=== PATIENT | male | born 1955 | race Two or more races ===

== ENCOUNTER 2024-06-10 11:11 | Inpatient (IN) | payer MEDICARE, MEDICAID ==
[2024-06-06 08:53] LABS: APTT 24 SECONDS (22-32); PROTHROMBIN TIME 10.3 SECONDS (9.0-12.0)
[2024-06-06 08:56] LABS: BASOPHILS % (AUTO) 0.7 % (0-1); EOSINOPHILS # (AUTO) 0.1 X10'3 (0-0.9); EOSINOPHILS % (AUTO) 1.8 % (0-6); HEMATOCRIT 43.9 % (42.0-52.0); HEMOGLOBIN 14.7 g/dl (14.0-17.9); LYMPHOCYTES # (AUTO) 1.3 X10'3 (1.1-4.8); LYMPHOCYTES % (AUTO) 18.5 % (21-51); MEAN CORPUSCULAR HEMOGLOBIN 29.7 PG (27.0-31.0); MEAN CORPUSCULAR HGB CONC 33.6 g/dL (33.0-36.5); MEAN CORPUSCULAR VOLUME 88.4 FL (78-98); MEAN PLATELET VOLUME 7.7 FL (7.4-10.4); MONOCYTES # (AUTO) 0.6 X10'3 (0-0.9); MONOCYTES % (AUTO) 8.5 % (2-12); NEUTROPHILS # (AUTO) 4.8 X10'3 (1.8-7.7); NEUTROPHILS % (AUTO) 70.5 % (42-75); PLATELET COUNT 241 X10'3 (140-440); RED BLOOD COUNT 4.96 X10'6 (4.70-6.10); RED CELL DISTRIBUTION WIDTH 13.5 % (11.5-14.5); WHITE BLOOD COUNT 6.8 X10'3 (4.5-11.0)
[2024-06-06 09:05] LABS: ALBUMIN 3.6 G/DL (3.4-5.0); ANION GAP 8 (8-16); BLOOD UREA NITROGEN 22 MG/DL (7-18); BUN/CREATININE RATIO 21.2 (10.0-20.0); CALCIUM 8.6 MG/DL (8.5-10.1); CHLORIDE 103 MMOL/L (99-107); CHOL/HDL RATIO 3.8 (0.00-4.99); CHOLESTEROL 196 MG/DL (0-200); CREATININE 1.04 MG/DL (0.60-1.10); GLUCOSE 118 MG/DL (70-104); HDL CHOLESTEROL 51 MG/DL (35-60); LDL CHOLESTEROL 112 MG/DL (50-100); POTASSIUM 4.2 MMOL/L (3.5-5.1); SODIUM 140 MMOL/L (135-145); TOTAL CARBON DIOXIDE 28.8 MMOL/L (24-32); TRIGLYCERIDES 148 MG/DL (20-135); eGFR 71 ML/MIN
[~2024-06-10] VITALS: Ht 162.6 cm; Wt 65.2 kg
[2024-06-10] VITALS (20 sets, daily range): BP systolic 128–161; BP diastolic 54–86; PULSE 66–81; RESP 16–23; TEMP 97.7; O2SAT 96–98
[2024-06-10] MEDS ORDERED: CANA300T PO (13:04)
[2024-06-10] MEDS ORDERED: METF-438 PO (13:04)
[2024-06-10] MEDS ORDERED: GLIM1TAB57 PO ×2 (13:04→13:20)
[2024-06-10] MEDS ORDERED: ASPI-1265 PO (13:20)
[2024-06-10] MEDS ORDERED: LISI20TA28 PO (13:20)
[2024-06-10] MEDS ORDERED: ATOR20TA PO (13:20)
[2024-06-10] MEDS: diphenhydrAMINE 25mg capsule PO PRN (13:51)
[2024-06-10] MEDS: LORazepam 0.5 MG tablet PO PRN (13:51)
[2024-06-10] MEDS: normal saline 1,000 ML IV SCH (13:53)
[2024-06-10] MEDS ORDERED: LIDOcaine 1% (10mg/ml) 2ml vial ONE (14:21)
[2024-06-10] MEDS ORDERED: verapamil 2.5 mg/ml inj IV ONE (14:21)
[2024-06-10] MEDS ORDERED: iohexol 350MG/ML 100ml bottle IV ONE (14:22)
[2024-06-10] MEDS ORDERED: midazolam 1 mg/ML 2ml injection ONE (14:22)
[2024-06-10] MEDS ORDERED: fentaNYL/PF 50MCG/1 ML 2ML syringe ONE (14:22)
[2024-06-10] MEDS ORDERED: heparin 1,000unit/ml 10ml vial 10 ML ONE (14:22)
[2024-06-10] MEDS ORDERED: nitroGLYCERIN 500mcg/5mL D5W 5 ML IV ONE (14:24)
[2024-06-10] MEDS ORDERED: HYDROcodone/acetaminophen 5mg/325mg tablet PO PRN (16:20)
[2024-06-10] MEDS ORDERED: HYDROcodone/acetaminophen 10/325mg tab PO PRN (16:20)
[2024-06-10] MEDS ORDERED: magnesium sulf-water 2g/50mL 50 ML IV PRN (17:10)
[2024-06-10] MEDS ORDERED: magnesium sulf-water 4G/100mL 100 ML IV PRN (17:10)
[2024-06-10] MEDS ORDERED: potassium Cl 40MEQ/1/2NS 520ml 520 ML IV PRN (17:10)
[2024-06-10] MEDS ORDERED: potassium Cl 20 mEq SR tablet PO PRN (17:10)
[2024-06-10] MEDS ORDERED: potassium Cl 40MEQ/270ML bag 250 ML IV PRN (17:10)
[2024-06-10] MEDS ORDERED: potassium Cl 20mEq/100mL bag 100 ML IV PRN (17:10)
[2024-06-10] MEDS ORDERED: potassium CL 10mEq/100ml bag 100 ML IV PRN (17:10)
[2024-06-10] MEDS ORDERED: dextrose 50%-water 50ml dispensing syringe IV PRN ×2 (17:15)
[2024-06-10] MEDS ORDERED: DEXTROSE 15 GM of carb/4 tabs (each vial/BOTTLE has 4 tablets) PO PRN ×2 (17:15)
[2024-06-10] MEDS ORDERED: glucagon, human recombinant 1mg kit SUBCUT PRN (17:15)
[2024-06-10] MEDS ORDERED: ringers solution, lacted 1,000 ML IV ONE (18:25)
[2024-06-10 19:06] LABS: ABG BASE EXCESS -0.1 mmol/L (-2.0-3.0); ABG HCO3 23.8 mmol/L (21.0-28.0); ABG OXYGEN SATURATION 95.2 % (94.0-98.0); ABG PCO2 (T) 35.6 mmHg (35.0-48.0); ABG PO2 (T) 74.3 mmHg (83.0-108.0); ALLEN'S TEST POSITIVE; FCOHb 0.3 % (0.5-1.5); FHHb 4.8 % (0.0-5.0); FMetHb 0.3 % (0.0-1.5); FO2Hb 94.6 % (94.0-98.0); MODE ROOM AIR; PATIENT TEMPERATURE 36.5; TOTAL HEMOGLOBIN 14.2 G/dl (13.5-17.5)
[2024-06-10] MEDS: glimepiride 1 MG tablet PO SCH (20:00)
[2024-06-10] MEDS ORDERED: metFORMIN 500mg tablet PO SCH (20:00)
[2024-06-10] MEDS: albuterol 2.5 MG/3 ML nebule NEB ONE (20:39)
[2024-06-10] MEDS: INSULIN LISPRO 100 UNIT/ML INSULN.PEN MULTI-DOSE SQ SCH (21:31)
[2024-06-11] VITALS (9 sets, daily range): BP systolic 125–158; BP diastolic 68–83; PULSE 64–86; RESP 13–22; TEMP 97.1–97.5; O2SAT 95–98
[2024-06-11] MEDS: metoprolol tartrate 12.5mg (1/2 tablet) PO SCH (01:01)
[2024-06-11] MEDS: mupirocin 2% nasal ointment 1gm UD NS SCH (01:02)
[2024-06-11 02:56] LABS: BASOPHILS % (AUTO) 0.6 % (0-1); EOSINOPHILS # (AUTO) 0.1 X10'3 (0-0.9); EOSINOPHILS % (AUTO) 1.7 % (0-6); HEMATOCRIT 40.5 % (42.0-52.0); HEMOGLOBIN 13.7 g/dl (14.0-17.9); LYMPHOCYTES % (AUTO) 13.5 % (21-51); MEAN CORPUSCULAR HEMOGLOBIN 29.6 PG (27.0-31.0); MEAN CORPUSCULAR HGB CONC 33.9 g/dL (33.0-36.5); MEAN CORPUSCULAR VOLUME 87.4 FL (78-98); MEAN PLATELET VOLUME 7.7 FL (7.4-10.4); MONOCYTES # (AUTO) 0.6 X10'3 (0-0.9); MONOCYTES % (AUTO) 8.5 % (2-12); NEUTROPHILS # (AUTO) 5.5 X10'3 (1.8-7.7); NEUTROPHILS % (AUTO) 75.7 % (42-75); PLATELET COUNT 202 X10'3 (140-440); RED BLOOD COUNT 4.63 X10'6 (4.70-6.10); RED CELL DISTRIBUTION WIDTH 13.5 % (11.5-14.5); WHITE BLOOD COUNT 7.2 X10'3 (4.5-11.0)
[2024-06-11 03:12] LABS: ALANINE AMINOTRANSFERASE 28 U/L (12-78); ALBUMIN 3.1 G/DL (3.4-5.0); ALBUMIN/GLOBULIN RATIO 0.9 (1.1-1.5); ALKALINE PHOSPHATASE 80 IU/L (46-116); ANION GAP 8 (8-16); ASPARTATE AMINO TRANSFERASE 26 U/L (10-37); BILIRUBIN,TOTAL 0.5 MG/DL (0.1-1.0); BLOOD UREA NITROGEN 18 MG/DL (7-18); BUN/CREATININE RATIO 21.7 (10.0-20.0); CALCIUM 8.4 MG/DL (8.5-10.1); CHLORIDE 105 MMOL/L (99-107); CREATININE 0.83 MG/DL (0.60-1.10); GLUCOSE 89 MG/DL (70-104); POTASSIUM 3.5 MMOL/L (3.5-5.1); SODIUM 140 MMOL/L (135-145); TOTAL CARBON DIOXIDE 26.8 MMOL/L (24-32); TOTAL PROTEIN 6.7 G/DL (6.4-8.2); eCRCL 70 ML/MIN; eGFR > 90 ML/MIN
[2024-06-11 03:30] LABS: APTT 25 SECONDS (22-32); PROTHROMBIN TIME 10.7 SECONDS (9.0-12.0)
[2024-06-11] MEDS ORDERED: ceFAZolin 2gm in dextrose, iso 50 ML IV ONE (05:30)
[2024-06-11] MEDS ORDERED: VANCOMYCIN 1GM 200ML H20 (PEG) 200 ML IV ONE (05:30)
[2024-06-11] MEDS ORDERED: LORazepam 2 mg/ml vial IV ONE (06:00)
[2024-06-11] MEDS ORDERED: famotidine 20mg tablet PO ONE (06:00)
[2024-06-11] MEDS: atorvastatin 20mg tablet PO SCH (08:00)
[2024-06-11] MEDS: [UNRECOGNIZED DRUG - OTHER] PO SCH (08:00)
[2024-06-11] MEDS: aspirin 81mg tab.chew PO SCH (08:00)
[2024-06-11] MEDS: lisinopril 20mg tablet PO SCH (08:00)
[2024-06-11] MEDS ORDERED: insulin glargine (Lantus) pen - multi-dose SQ PRN (08:30)
[2024-06-11] MEDS ORDERED: dextrose 50%-water 50ml dispensing syringe IV PRN (08:30)
[2024-06-11] MEDS ORDERED: Insulin Reg/NS 100units/100mL 100 ML IV SCH (08:30)
[2024-06-11] MEDS: MESSAGE TO NURSING PO ONE ×5 (08:39→10:00)
[2024-06-11] MEDS: ceFAZolin 2gm in dextrose, iso 50 ML IV ONE (08:43)
[2024-06-11] MEDS: VANCOMYCIN 1GM 200ML H20 (PEG) 200 ML IV ONE (08:43)
[2024-06-12] VITALS (21 sets, daily range): BP systolic 87–154; BP diastolic 45–75; PULSE 72–102; RESP 12–24; TEMP 97.8–98.2; O2SAT 95–100
[2024-06-12] MEDS: ceFAZolin 2gm in dextrose, iso 50 ML IV ONE (06:30)
[2024-06-12] MEDS ORDERED: vancomycin 1,000mg inj ONE (08:58)
[2024-06-12] MEDS ORDERED: ceFAZolin 1000mg inj ONE (08:58)
[2024-06-12] MEDS ORDERED: epiNEPHrine 1 mg/ml inj ONE (08:58)
[2024-06-12] MEDS ORDERED: BUPIVAcaine 0.5% inj/PF 30 ML ONE ×2 (08:59→12:50)
[2024-06-12] MEDS: VANCOMYCIN 1GM 200ML H20 (PEG) 200 ML IV ONE (11:32)
[2024-06-12] MEDS: famotidine 20mg tablet PO ONE (12:21)
[2024-06-12 12:50] LABS: BILIRUBIN,URINE NEGATIVE (Neg); CLARITY,URINE CLEAR (Clear); COLOR,URINE YELLOW (Yellow); GLUCOSE, URINE >=1000 mg/dl (Neg); KETONES,URINE TRACE mg/dl (Neg); LEUKOCYTE ESTERASE ,URINE NEGATIVE (Neg); NITRITES, URINE NEGATIVE (Neg); OCCULT BLOOD,URINE NEGATIVE (Neg); PROTEIN,URINE NEGATIVE (Neg)
[2024-06-12 12:55] LABS: UA COLLECTION TYPE VOIDED
[2024-06-12 12:59] LABS: BACTERIA,URINE NONE SEEN /HPF (Neg); RBC,URINE 0-2 /HPF (0-2); SQUAMOUS EPITHELIAL CELL,UR NONE SEEN /LPF (FEW); WBC,URINE NONE SEEN /HPF (0-4)
[2024-06-12] MEDS: LORazepam 2 mg/ml vial IV ONE (13:20)
[2024-06-12] MEDS ORDERED: sevoflurane 250ml liquid IH ONE (13:39)
[2024-06-12] MEDS ORDERED: MIDAZolam 1 MG/ML 5ML VIAL ONE (13:45)
[2024-06-12] MEDS ORDERED: propofol inj 20 ML IV ONE (13:45)
[2024-06-12] MEDS ORDERED: rocuronium 10mg/ml inj IV ONE ×2 (13:45→13:46)
[2024-06-12] MEDS ORDERED: SUfentanil 50mcg/ml 1ml amp IV ONE (13:45)
[2024-06-12] MEDS: ceFAZolin 1000mg inj IR ONE (14:28)
[2024-06-12 14:52] LABS: ABG HCO3 19.3 mmol/L (21.0-28.0); ABG OXYGEN SATURATION 98.9 % (94.0-98.0); ABG PCO2 (T) 37.5 mmHg (35.0-48.0); ABG PH (T) 7.329 (7.350-7.450); ABG PO2 (T) 209.5 mmHg (83.0-108.0); FCOHb 0.1 % (0.5-1.5); FHHb 1.1 % (0.0-5.0); FMetHb 0.3 % (0.0-1.5); FO2Hb 98.5 % (94.0-98.0); TOTAL HEMOGLOBIN 13.2 G/dl (13.5-17.5)
[2024-06-12 15:13] LABS: ABG BASE EXCESS 2.9 mmol/L (-2.0-3.0); ABG OXYGEN SATURATION 99.2 % (94.0-98.0); ABG PCO2 (T) 33.9 mmHg (35.0-48.0); ABG PH (T) 7.503 (7.350-7.450); FCOHb 0.3 % (0.5-1.5); FHHb 0.8 % (0.0-5.0); FMetHb 0.3 % (0.0-1.5); FO2Hb 98.6 % (94.0-98.0); TOTAL HEMOGLOBIN 8.5 G/dl (13.5-17.5)
[2024-06-12 16:17] LABS: ABG BASE EXCESS -3.1 mmol/L (-2.0-3.0); ABG HCO3 21.5 mmol/L (21.0-28.0); ABG PCO2 (T) 36.4 mmHg (35.0-48.0); ABG PH (T) 7.389 (7.350-7.450); FCOHb 0.3 % (0.5-1.5); FHHb 17.2 % (0.0-5.0); FMetHb 0.3 % (0.0-1.5); FO2Hb 82.2 % (94.0-98.0); TOTAL HEMOGLOBIN 10.1 G/dl (13.5-17.5)
[2024-06-12] MEDS ORDERED: fentaNYL/PF 50MCG/1 ML 2ML syringe ONE (16:19)
[2024-06-12] MEDS ORDERED: niCARDipine-NS 40mg/200ml IVPB 200 ML IV PRN (16:40)
[2024-06-12] MEDS ORDERED: magnesium sulf-water 4G/100mL 100 ML IV PRN (16:40)
[2024-06-12] MEDS ORDERED: mineral oil 133ml enema RC PRN (16:40)
[2024-06-12] MEDS ORDERED: potassium CL 10mEq/100ml bag 100 ML IV PRN (16:40)
[2024-06-12] MEDS ORDERED: metoclopramide 5 mg/ml inj IV PRN (16:40)
[2024-06-12] MEDS ORDERED: dextrose 50%-water 50ml dispensing syringe IV PRN (16:40)
[2024-06-12] MEDS ORDERED: ondansetron/PF 4mg/2ml inj IV PRN (16:40)
[2024-06-12] MEDS ORDERED: morphine 4 MG/ML inj SYRINge IV PRN (16:40)
[2024-06-12] MEDS ORDERED: sodium phosphate inj. 15 MMOL in dextrose 5%-water 250 ML IV PRN (16:40)
[2024-06-12] MEDS ORDERED: insulin glargine (Lantus) pen - multi-dose SQ PRN (16:40)
[2024-06-12] MEDS ORDERED: sodium phosphate inj. 30 MMOL in dextrose 5%-water 250 ML IV PRN (16:40)
[2024-06-12] MEDS ORDERED: potassium Cl 40MEQ/1/2NS 520ml 520 ML IV PRN (16:40)
[2024-06-12] MEDS ORDERED: potassium Cl 40MEQ/270ML bag 250 ML IV PRN (16:40)
[2024-06-12] MEDS ORDERED: potassium Cl 20 mEq SR tablet PO PRN (16:40)
[2024-06-12] MEDS ORDERED: bisacodyl 10mg suppository rectal RC PRN (16:40)
[2024-06-12] MEDS: nitroGLYCERIN-Tridil 50MG/D5W 250 ML IV SCH (16:40)
[2024-06-12] MEDS ORDERED: magnesium sulf-water 2g/50mL 50 ML IV PRN (16:40)
[2024-06-12] MEDS ORDERED: magnesium hydroxide 30ml (MOM) UD suspension PO PRN (16:40)
[2024-06-12] MEDS ORDERED: acetaminophen 325mg tablet PO PRN ×2 (16:40)
[2024-06-12] MEDS ORDERED: Neutra Phos packet PO PRN (16:40)
[2024-06-12 17:16] LABS: ABG BASE EXCESS -3.6 mmol/L (-2.0-3.0); ABG HCO3 21.3 mmol/L (21.0-28.0); ABG OXYGEN SATURATION 98.7 % (94.0-98.0); ABG PCO2 (T) 37.3 mmHg (35.0-48.0); ABG PH (T) 7.373 (7.350-7.450); ABG PO2 (T) 175.8 mmHg (83.0-108.0); FCOHb 0.3 % (0.5-1.5); FHHb 1.3 % (0.0-5.0); FMetHb 0.3 % (0.0-1.5); FO2Hb 98.1 % (94.0-98.0); MODE VENT - SIMV/VC; PATIENT TEMPERATURE 36.4; PEEP 5 cm H2O; RESPIRATORY RATE 12 b/min; TIDAL VOLUME 450 mL; TOTAL HEMOGLOBIN 11.1 G/dl (13.5-17.5)
[2024-06-12] MEDS: albumin (Human) 5% 250ml 250 ML IV PRN (17:22)
[2024-06-12 17:44] LABS: BASOPHILS % (AUTO) 0.2 % (0-1); EOSINOPHILS # (AUTO) 0.1 X10'3 (0-0.9); EOSINOPHILS % (AUTO) 0.9 % (0-6); HEMATOCRIT 29.2 % (42.0-52.0); LYMPHOCYTES # (AUTO) 0.7 X10'3 (1.1-4.8); LYMPHOCYTES % (AUTO) 8.6 % (21-51); MEAN CORPUSCULAR HEMOGLOBIN 30.2 PG (27.0-31.0); MEAN CORPUSCULAR HGB CONC 34.1 g/dL (33.0-36.5); MEAN CORPUSCULAR VOLUME 88.4 FL (78-98); MEAN PLATELET VOLUME 7.7 FL (7.4-10.4); MONOCYTES # (AUTO) 0.3 X10'3 (0-0.9); MONOCYTES % (AUTO) 3.9 % (2-12); NEUTROPHILS # (AUTO) 6.8 X10'3 (1.8-7.7); NEUTROPHILS % (AUTO) 86.4 % (42-75); PLATELET COUNT 108 X10'3 (140-440); RED CELL DISTRIBUTION WIDTH 13.6 % (11.5-14.5); WHITE BLOOD COUNT 7.8 X10'3 (4.5-11.0)
[2024-06-12 17:49] LABS: ALANINE AMINOTRANSFERASE 14 U/L (12-78); ALBUMIN 2.8 G/DL (3.4-5.0); ALBUMIN/GLOBULIN RATIO 1.6 (1.1-1.5); ALKALINE PHOSPHATASE 41 IU/L (46-116); ANION GAP 9 (8-16); ASPARTATE AMINO TRANSFERASE 25 U/L (10-37); BILIRUBIN,TOTAL 0.8 MG/DL (0.1-1.0); BLOOD UREA NITROGEN 13 MG/DL (7-18); BUN/CREATININE RATIO 20.3 (10.0-20.0); CALCIUM 7.3 MG/DL (8.5-10.1); CHLORIDE 110 MMOL/L (99-107); CREATININE 0.64 MG/DL (0.60-1.10); GLUCOSE 106 MG/DL (70-104); MAGNESIUM 2.6 MG/DL (1.5-2.4); PHOSPHORUS 2.6 MG/DL (2.3-4.5); POTASSIUM 3.6 MMOL/L (3.5-5.1); SODIUM 142 MMOL/L (135-145); TOTAL PROTEIN 4.6 G/DL (6.4-8.2); eCRCL 91 ML/MIN; eGFR > 90 ML/MIN
[2024-06-12] MEDS: morphine 2 MG/ML inj. syringe IV PRN (18:21)
[2024-06-12 19:07] LABS: FIBRINOGEN 171 MG/DL (177-424); INR 1.3 INR
[2024-06-12 19:12] LABS: APTT 36 SECONDS (22-32)
[2024-06-12] MEDS: potassium Cl 20mEq/100mL bag 100 ML IV PRN (19:20)
[2024-06-12] MEDS: sodium chloride 0.45% 1,000 ML IV SCH (19:29)
[2024-06-12] MEDS: sennosides/docusate sodium tablet PO SCH (20:00)
[2024-06-12] MEDS: VANCOMYCIN 1GM 200ML H20 (PEG) 200 ML IV SCH (20:04)
[2024-06-12] MEDS: mupirocin 2% nasal ointment 1gm UD NS SCH (20:21)
[2024-06-12] MEDS: atorvastatin 10mg tablet PO SCH (20:21)
[2024-06-12] MEDS: NORepinephrine 8mg/ 250ml NS 250 ML IV PRN (20:36)
[2024-06-12 21:22] LABS: ABG BASE EXCESS -9.4 mmol/L (-2.0-3.0); ABG HCO3 16.3 mmol/L (21.0-28.0); ABG OXYGEN SATURATION 97.4 % (94.0-98.0); ABG PCO2 (T) 34.7 mmHg (35.0-48.0); ABG PO2 (T) 117.6 mmHg (83.0-108.0); FCOHb 0.1 % (0.5-1.5); FHHb 2.6 % (0.0-5.0); FMetHb 0.3 % (0.0-1.5); MODE VENT - CPAP; PEEP 5 cm H2O; TOTAL HEMOGLOBIN 9.5 G/dl (13.5-17.5)
[2024-06-12 21:42] LABS: BASOPHILS % (AUTO) 0.1 % (0-1); EOSINOPHILS % (AUTO) 0 % (0-6); HEMATOCRIT 26.5 % (42.0-52.0); HEMOGLOBIN 9.1 g/dl (14.0-17.9); LYMPHOCYTES # (AUTO) 0.4 X10'3 (1.1-4.8); LYMPHOCYTES % (AUTO) 4.3 % (21-51); MEAN CORPUSCULAR HEMOGLOBIN 30.7 PG (27.0-31.0); MEAN CORPUSCULAR HGB CONC 34.3 g/dL (33.0-36.5); MEAN CORPUSCULAR VOLUME 89.4 FL (78-98); MEAN PLATELET VOLUME 7.8 FL (7.4-10.4); MONOCYTES # (AUTO) 0.4 X10'3 (0-0.9); MONOCYTES % (AUTO) 4.2 % (2-12); NEUTROPHILS # (AUTO) 8.9 X10'3 (1.8-7.7); NEUTROPHILS % (AUTO) 91.4 % (42-75); PLATELET COUNT 108 X10'3 (140-440); RED BLOOD COUNT 2.96 X10'6 (4.70-6.10); RED CELL DISTRIBUTION WIDTH 13.3 % (11.5-14.5); WHITE BLOOD COUNT 9.7 X10'3 (4.5-11.0)
[2024-06-12] MEDS: sodium bicarbonate (8.4%) 1 mEq/ml syringe IV ONE (21:44)
[2024-06-12 21:48] LABS: ANION GAP 14 (8-16); BLOOD UREA NITROGEN 16 MG/DL (7-18); CALCIUM 7.9 MG/DL (8.5-10.1); CHLORIDE 111 MMOL/L (99-107); GLUCOSE 128 MG/DL (70-104); MAGNESIUM 2.6 MG/DL (1.5-2.4); PHOSPHORUS 4.5 MG/DL (2.3-4.5); POTASSIUM 5.3 MMOL/L (3.5-5.1); SODIUM 143 MMOL/L (135-145); TOTAL CARBON DIOXIDE 18.3 MMOL/L (24-32); eCRCL 73 ML/MIN; eGFR > 90 ML/MIN
[2024-06-12] MEDS: ceFAZolin/D5W- 1GM premix 50 ML IV SCH (23:43)
[2024-06-13] VITALS (25 sets, daily range): BP systolic 97–126; BP diastolic 45–62; PULSE 95–114; RESP 13–26; O2SAT 94–98
[2024-06-13] MEDS: Insulin Reg/NS 100units/100mL 100 ML IV SCH (01:27)
[2024-06-13 03:20] LABS: BASOPHILS % (AUTO) 0 % (0-1); EOSINOPHILS % (AUTO) 0 % (0-6); HEMOGLOBIN 9.7 g/dl (14.0-17.9); LYMPHOCYTES # (AUTO) 0.5 X10'3 (1.1-4.8); LYMPHOCYTES % (AUTO) 3.3 % (21-51); MEAN CORPUSCULAR HGB CONC 33.4 g/dL (33.0-36.5); MEAN PLATELET VOLUME 8.1 FL (7.4-10.4); MONOCYTES # (AUTO) 0.5 X10'3 (0-0.9); MONOCYTES % (AUTO) 3.4 % (2-12); NEUTROPHILS # (AUTO) 12.8 X10'3 (1.8-7.7); NEUTROPHILS % (AUTO) 93.3 % (42-75); PLATELET COUNT 125 X10'3 (140-440); RED BLOOD COUNT 3.22 X10'6 (4.70-6.10); RED CELL DISTRIBUTION WIDTH 13.5 % (11.5-14.5); WHITE BLOOD COUNT 13.7 X10'3 (4.5-11.0)
[2024-06-13 03:33] LABS: APTT 26 SECONDS (22-32); INR 1.1 INR; PROTHROMBIN TIME 11.8 SECONDS (9.0-12.0)
[2024-06-13 03:35] LABS: ALANINE AMINOTRANSFERASE 22 U/L (12-78); ALBUMIN 4.4 G/DL (3.4-5.0); ALBUMIN/GLOBULIN RATIO 2.2 (1.1-1.5); ALKALINE PHOSPHATASE 50 IU/L (46-116); ANION GAP 19 (8-16); ASPARTATE AMINO TRANSFERASE 40 U/L (10-37); BILIRUBIN,TOTAL 1.1 MG/DL (0.1-1.0); BLOOD UREA NITROGEN 18 MG/DL (7-18); BUN/CREATININE RATIO 18.2 (10.0-20.0); CALCIUM 8.3 MG/DL (8.5-10.1); CHLORIDE 112 MMOL/L (99-107); CREATININE 0.99 MG/DL (0.60-1.10); GLUCOSE 125 MG/DL (70-104); MAGNESIUM 2.6 MG/DL (1.5-2.4); PHOSPHORUS 5.1 MG/DL (2.3-4.5); POTASSIUM 4.5 MMOL/L (3.5-5.1); SODIUM 146 MMOL/L (135-145); TOTAL PROTEIN 6.4 G/DL (6.4-8.2); eCRCL 59 ML/MIN; eGFR 75 ML/MIN
[2024-06-13 03:39] LABS: TOTAL CARBON DIOXIDE 14.8 MMOL/L (24-32)
[2024-06-13] MEDS: aspirin 81mg tab.chew PO SCH (07:30)
[2024-06-13] MEDS: metoprolol tartrate 12.5mg (1/2 tablet) PO SCH (08:00)
[2024-06-13] MEDS: HYDROcodone/acetaminophen 10/325mg tab PO PRN (08:14)
[2024-06-13] MEDS: albumin (Human) 5% 250ml 250 ML IV ONE ×3 (08:21→10:30)
[2024-06-13] MEDS: NORepinephrine 8mg/ 250ml NS 250 ML IV PRN (11:55)
[2024-06-13] MEDS ORDERED: glucagon, human recombinant 1mg kit SUBCUT PRN (12:25)
[2024-06-13] MEDS ORDERED: DEXTROSE 15 GM of carb/4 tabs (each vial/BOTTLE has 4 tablets) PO PRN ×2 (12:25)
[2024-06-13] MEDS ORDERED: dextrose 50%-water 50ml dispensing syringe IV PRN ×2 (12:25)
[2024-06-13] MEDS: INSULIN LISPRO 100 UNIT/ML INSULN.PEN MULTI-DOSE SQ SCH (13:50)
[2024-06-14] VITALS (19 sets, daily range): BP systolic 92–139; BP diastolic 47–62; PULSE 98–115; RESP 11–30; TEMP 97–98.1; O2SAT 90–98
[2024-06-14 02:54] LABS: BASOPHILS % (AUTO) 0 % (0-1); EOSINOPHILS % (AUTO) 0 % (0-6); HEMATOCRIT 23.4 % (42.0-52.0); HEMOGLOBIN 7.9 g/dl (14.0-17.9); LYMPHOCYTES # (AUTO) 0.5 X10'3 (1.1-4.8); LYMPHOCYTES % (AUTO) 3.7 % (21-51); MEAN CORPUSCULAR HEMOGLOBIN 30.3 PG (27.0-31.0); MEAN CORPUSCULAR HGB CONC 33.8 g/dL (33.0-36.5); MEAN CORPUSCULAR VOLUME 89.6 FL (78-98); MONOCYTES # (AUTO) 1.2 X10'3 (0-0.9); MONOCYTES % (AUTO) 8.9 % (2-12); NEUTROPHILS # (AUTO) 12.3 X10'3 (1.8-7.7); NEUTROPHILS % (AUTO) 87.4 % (42-75); PLATELET COUNT 117 X10'3 (140-440); RED BLOOD COUNT 2.61 X10'6 (4.70-6.10); RED CELL DISTRIBUTION WIDTH 14.1 % (11.5-14.5); WHITE BLOOD COUNT 14.1 X10'3 (4.5-11.0)
[2024-06-14 03:24] LABS: ANION GAP 16 (8-16); BLOOD UREA NITROGEN 27 MG/DL (7-18); BUN/CREATININE RATIO 20.9 (10.0-20.0); CALCIUM 8.6 MG/DL (8.5-10.1); CHLORIDE 114 MMOL/L (99-107); CREATININE 1.29 MG/DL (0.60-1.10); GLUCOSE 227 MG/DL (70-104); MAGNESIUM 2.8 MG/DL (1.5-2.4); PHOSPHORUS 3.9 MG/DL (2.3-4.5); POTASSIUM 4.5 MMOL/L (3.5-5.1); SODIUM 147 MMOL/L (135-145); TOTAL CARBON DIOXIDE 16.6 MMOL/L (24-32); eCRCL 45 ML/MIN; eGFR 55 ML/MIN
[2024-06-14] MEDS: pantoprazole 40mg Tablet.DR PO SCH (08:29)
[2024-06-14] MEDS: HYDROcodone/acetaminophen 10/325mg tab PO PRN (08:38)
[2024-06-14] MEDS: furosemide 20 MG/2 ML vial IV ONE (13:37)
[2024-06-14] MEDS ORDERED: dextrose 50%-water 50ml dispensing syringe IV PRN ×2 (17:45)
[2024-06-14] MEDS ORDERED: DEXTROSE 15 GM of carb/4 tabs (each vial/BOTTLE has 4 tablets) PO PRN ×2 (17:45)
[2024-06-14] MEDS ORDERED: glucagon, human recombinant 1mg kit SUBCUT PRN (17:45)
[2024-06-14] MEDS: INSULIN LISPRO 100 UNIT/ML INSULN.PEN MULTI-DOSE SQ SCH (18:12)
[2024-06-15 02:00] VITALS: BP 133/66; PULSE 95; RESP 12; TEMP 97.6; O2SAT 98
[2024-06-15 06:00] VITALS: BP 123/62; PULSE 107; RESP 17; TEMP 98.1; O2SAT 100
[2024-06-15 07:07] LABS: BASOPHILS % (AUTO) 0.2 % (0-1); EOSINOPHILS % (AUTO) 0.1 % (0-6); HEMATOCRIT 24.5 % (42.0-52.0); HEMOGLOBIN 8.3 g/dl (14.0-17.9); LYMPHOCYTES # (AUTO) 0.8 X10'3 (1.1-4.8); LYMPHOCYTES % (AUTO) 7.5 % (21-51); MEAN CORPUSCULAR HEMOGLOBIN 30.4 PG (27.0-31.0); MEAN CORPUSCULAR HGB CONC 33.9 g/dL (33.0-36.5); MEAN CORPUSCULAR VOLUME 89.7 FL (78-98); MEAN PLATELET VOLUME 7.9 FL (7.4-10.4); MONOCYTES # (AUTO) 0.9 X10'3 (0-0.9); MONOCYTES % (AUTO) 8.6 % (2-12); NEUTROPHILS # (AUTO) 8.5 X10'3 (1.8-7.7); NEUTROPHILS % (AUTO) 83.6 % (42-75); PLATELET COUNT 105 X10'3 (140-440); RED BLOOD COUNT 2.73 X10'6 (4.70-6.10); RED CELL DISTRIBUTION WIDTH 14.1 % (11.5-14.5); WHITE BLOOD COUNT 10.2 X10'3 (4.5-11.0)
[2024-06-15 07:36] LABS: ALBUMIN 3.7 G/DL (3.4-5.0); ANION GAP 7 (8-16); BLOOD UREA NITROGEN 40 MG/DL (7-18); BUN/CREATININE RATIO 38.8 (10.0-20.0); CALCIUM 8.7 MG/DL (8.5-10.1); CHLORIDE 109 MMOL/L (99-107); CREATININE 1.03 MG/DL (0.60-1.10); GLUCOSE 202 MG/DL (70-104); MAGNESIUM 2.8 MG/DL (1.5-2.4); PHOSPHORUS 2.9 MG/DL (2.3-4.5); POTASSIUM 4.6 MMOL/L (3.5-5.1); SODIUM 144 MMOL/L (135-145); TOTAL CARBON DIOXIDE 28.3 MMOL/L (24-32); eCRCL 57 ML/MIN; eGFR 72 ML/MIN
[2024-06-15 08:00] VITALS: RESP 17; O2SAT 100
[2024-06-15] MEDS: insulin glargine (Lantus) pen - multi-dose SQ SCH (09:10)
[2024-06-15 12:00] VITALS: BP 114/65; PULSE 100; RESP 17; TEMP 98.6; O2SAT 98
[2024-06-15] MEDS ORDERED: polyvinyl alcohol eye drops 15ML BOTTLE EACHEYE PRN (12:35)
[2024-06-15] MEDS: polyvinyl alcohol eye drops 15ML BOTTLE EACHEYE PRN (16:27)
[2024-06-15 18:00] VITALS: BP 110/67; PULSE 117; RESP 16; TEMP 100.3; O2SAT 93
[2024-06-15 19:00] VITALS: RESP 16; O2SAT 93
[2024-06-15] MEDS: metoprolol tartrate 25mg tablet PO SCH (20:10)
[2024-06-16] VITALS: BP 109/68; PULSE 103; RESP 16; TEMP 99.8; O2SAT 92
[2024-06-16 06:00] VITALS: BP 110/66; PULSE 113; RESP 24; TEMP 98.2; O2SAT 92
[2024-06-16 07:00] VITALS: RESP 24; O2SAT 92
[2024-06-16 07:25] LABS: BASOPHILS % (AUTO) 0.5 % (0-1); EOSINOPHILS # (AUTO) 0.1 X10'3 (0-0.9); HEMATOCRIT 24.2 % (42.0-52.0); HEMOGLOBIN 8.2 g/dl (14.0-17.9); LYMPHOCYTES # (AUTO) 0.9 X10'3 (1.1-4.8); LYMPHOCYTES % (AUTO) 13.1 % (21-51); MEAN CORPUSCULAR HEMOGLOBIN 30.2 PG (27.0-31.0); MEAN CORPUSCULAR VOLUME 88.7 FL (78-98); MEAN PLATELET VOLUME 8.2 FL (7.4-10.4); MONOCYTES # (AUTO) 0.7 X10'3 (0-0.9); MONOCYTES % (AUTO) 9.3 % (2-12); NEUTROPHILS # (AUTO) 5.4 X10'3 (1.8-7.7); NEUTROPHILS % (AUTO) 76.1 % (42-75); PLATELET COUNT 120 X10'3 (140-440); RED BLOOD COUNT 2.73 X10'6 (4.70-6.10); RED CELL DISTRIBUTION WIDTH 13.8 % (11.5-14.5); WHITE BLOOD COUNT 7.1 X10'3 (4.5-11.0)
[2024-06-16 08:19] LABS: ALBUMIN 3.3 G/DL (3.4-5.0); ANION GAP 9 (8-16); BLOOD UREA NITROGEN 31 MG/DL (7-18); BUN/CREATININE RATIO 39.2 (10.0-20.0); CALCIUM 8.2 MG/DL (8.5-10.1); CHLORIDE 106 MMOL/L (99-107); CREATININE 0.79 MG/DL (0.60-1.10); GLUCOSE 125 MG/DL (70-104); MAGNESIUM 2.2 MG/DL (1.5-2.4); POTASSIUM 3.8 MMOL/L (3.5-5.1); SODIUM 144 MMOL/L (135-145); TOTAL CARBON DIOXIDE 28.6 MMOL/L (24-32); eCRCL 74 ML/MIN; eGFR > 90 ML/MIN
[2024-06-16] MEDS ORDERED: HYDR-3965 PO (10:48)
[2024-06-16] MEDS ORDERED: FOLI0.4T6 PO (10:48)
[2024-06-16] MEDS ORDERED: FERR325T28 PO (10:48)
[2024-06-16] MEDS ORDERED: PANT40TA54 PO (10:48)
[2024-06-16] MEDS ORDERED: LOP25T PO (10:48)
[2024-06-16 11:00] VITALS: BP 106/58; PULSE 100; RESP 18; TEMP 97.1; O2SAT 96
[2024-06-16 11:46] LABS: ABG PO2 (T) 496.5 mmHg (83.0-108.0)
[2024-06-16 11:47] LABS: ABG OXYGEN SATURATION 82.7 % (94.0-98.0); ABG PO2 (T) 46.1 mmHg (83.0-108.0)
[2024-06-16 16:59] VITALS: RESP 20
== END 2024-06-16 17:18 | disposition home health service (06) | DRG 233 ==
LOC: SSTAY O 11:11 → PCU 3S 17:09 → CICU 2S 06-12 15:45 → PCU 3S 06-14 16:06
PROVIDERS: ADMIT Thoracic Surgery (Cardiothoracic Vascular Surgery); ATTEND Thoracic Surgery (Cardiothoracic Vascular Surgery)
PROC: 06BP4ZZ Excision of Right Saphenous Vein, Percutaneous Endoscopic Approach (ICD-10-PCS; 2024-06-10)
PROC: 5A1221Z Performance of Cardiac Output, Continuous (ICD-10-PCS; 2024-06-10)
PROC: B24BZZ4 Ultrasonography of Heart with Aorta, Transesophageal (ICD-10-PCS; 2024-06-10)
PROC: B2151ZZ Fluoroscopy of Left Heart using Low Osmolar Contrast (ICD-10-PCS; 2024-06-10)
PROC: 4A023N7 Measurement of Cardiac Sampling and Pressure, Left Heart, Percutaneous Approach (ICD-10-PCS; principal; 2024-06-11)
PROC: B2111ZZ Fluoroscopy of Multiple Coronary Arteries using Low Osmolar Contrast (ICD-10-PCS; 2024-06-11)
PROC: 021009W Bypass Coronary Artery, One Artery from Aorta with Autologous Venous Tissue, Open Approach (ICD-10-PCS; 2024-06-12)
PROC: 02100Z9 Bypass Coronary Artery, One Artery from Left Internal Mammary, Open Approach (ICD-10-PCS; 2024-06-12)
PROC: 02100Z8 Bypass Coronary Artery, One Artery from Right Internal Mammary, Open Approach (ICD-10-PCS; 2024-06-12)
DX: I25.10 Atherosclerotic heart disease of native coronary artery without angina pectoris (principal); R57.1 Hypovolemic shock; D62 Acute posthemorrhagic anemia; E11.9 Type 2 diabetes mellitus without complications; E87.70 Fluid overload, unspecified; I10 Essential (primary) hypertension; R00.0 Tachycardia, unspecified; Z79.84 Long term (current) use of oral hypoglycemic drugs; Z79.899 Other long term (current) drug therapy
CPT/HCPCS: 36415; 36600; 71045; 80048; 80053; 80061; 81001; 82800; 82803; 82948; 83036; 83735; 84100; 84132; 85018; 85025; 85347; 85384; 85610; 85730; 86885; 86900; 86901; 86920; 87081; 93005; 93312; 93325; 93458; 93880; 93931; 93970; 94002; 94060; 94640; 94760; 97116; 97161; 97530; 99152; A4615; A4618; A6213; A6258; A6402; A6446; A6449; A7000; C1751; C1894; G0378; J0171; J0665; J0690; J1644; J1815; J1940; J2003; J2060; J2150; J2250; J2270; J2440; J2704; J2720; J2919; J3010; J3370; J3372; J3480; J3490; J7030; J7040; J7050; J7120; P9045; P9047; Q0163; Q9967